=== PATIENT | female | born 1985 | race Caucasian/White ===

== ENCOUNTER 2018-06-16 08:20 | Inpatient (IN) | payer OTHER ==
[~2018-06-16] VITALS: Ht 157.5 cm; Wt 64.9 kg
[~2018-06-16 08:20] MED LIST: Benzocaine 60 ML TP; DOCU240C67 PO; IBUP600T22 PO; Lanolin TP; PREN1TAB50 PO; TUCKS TP
[2018-06-16] MEDS ORDERED: LIDOCAINE/PF 2% 200MG/10ML AMP 200 MG/10 ML AMPUL EPI PRN (08:45)
[2018-06-16] MEDS ORDERED: METOCLOPRAMIDE 10 MG/2 ML SDV IVP PRN (08:45)
[2018-06-16] MEDS ORDERED: fentaNYL CITR 100 MCG/2 ML AMP IT PRN (08:45)
[2018-06-16] MEDS ORDERED: LIDO/EPI 2% MPF 1:200,000 20ML EPI PRN (08:45)
[2018-06-16] MEDS ORDERED: BUPIVACAINE 0.25% MPF INJ EPI PRN (08:45)
[2018-06-16] MEDS ORDERED: LIDOCAINE 1% LOCAL 300 MG/30ML INJ PRN (08:45)
[2018-06-16] MEDS ORDERED: OXYTOCIN 30 UNIT/D5LR 500 ML 500 ML IV PRN (08:45)
[2018-06-16] MEDS ORDERED: FAMOTIDINE(*) 20MG/50ML PREMIX 50 ML IVPB PRN (08:45)
[2018-06-16] MEDS ORDERED: cefOXitin/DEX(*) 2GM/50ML PREM 50 ML IVPB PRN (08:45)
[2018-06-16] MEDS ORDERED: LR(*) 1000 ML BAG 1,000 ML IV PRN (08:45)
[2018-06-16] MEDS ORDERED: DLR(*) 1000 ML BAG 1,000 ML IV PRN (08:45)
[2018-06-16] MEDS ORDERED: fentaNYL CITR 100 MCG/2 ML AMP IVP PRN (08:45)
[2018-06-16] MEDS ORDERED: FLUSH 10 ML SYR IVP PRN (08:45)
[2018-06-16] MEDS ORDERED: EPIDURAL KEYS XX PRN (08:45)
[2018-06-16] MEDS ORDERED: BUPIVACAINE 0.5% INJ 30ML VIAL EPI PRN (08:45)
[2018-06-16] MEDS ORDERED: FENTANYL/ROPIVACAINE 100 ML BAG EPI PRN (08:45)
--- NOTE | 2018-06-16 08:45 | History & Physical ---
History of Present Illness Age of Patient: 32 : 6 Para or TPAL: 4014 EDC per LMP: Jun 21, 2018 Estimated Gestational Age: 39.2 Chief Complaint CONTRACTIONS History of Present Illness The patient is a 32 year old 6 para 4014 admitted at 39 2/7 weeks estimated gestational age with an estimated date of delivery 06/21/18. Patient is admitted with complaint of contractions. No vaginal bleeding. Good movement and regular contractions. She was evaluated for active labor. She had an uncomplicated course. Her record was reviewed. History Allergies: Coded Allergies: No Known Drug Allergies (Unverified , 11/23/15) Social History: , is present and supportive. 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 No noxious habits. Med Rec Home Meds No Active Prescriptions or Reported Meds Exam General Exam Cardiovascular: Regular Rate and Rhythm Respiratory: Clear to Auscultation Abdomen: Gravid - Non-Tender Extremities: No Edema Cervical Dialation: 6 (RN) Uterine Contractions(Q min): 3 Uterine Contraction Strength: Strong Fetus Heart Tones: 140 Heart Tone Variabilty: Moderate FHT Decelerations: Variable FHT Category: II Assessment and Plan Problems: (1) Active labor at term Status: Resolved Assessment & Plan: WILL GET ADMITTED AN DDESIRES AN EPIDURAL, WILL MONITOR FOR CERVICAL CHANGE CAMERON PANTOJA MD Jun 16, 2018 08:45
[2018-06-16] MEDS ORDERED: LR(*) 1000 ML BAG 1,000 ML ONE (08:55)
[2018-06-16] MEDS ORDERED: OXYTOCIN 30 UNIT/D5LR 500 ML 500 ML ONE (09:11)
[2018-06-16 09:18] LABS: PLATELET COUNT, AUTOMATED 255 K/uL (150-450)
[2018-06-16 10:10] VITALS: BP 117/76; Ht 157.5 cm; Wt 64.9 kg
[2018-06-16] MEDS ORDERED: PREN-127 PO (10:18)
--- NOTE | 2018-06-16 10:21 | Anesthesia OB Pre-Anes Eval ---
History of Present Illness Anesthesia Start Date: Jun 16, 2018 Anesthesia Start Time: 08:45 OB Anesthesia Diagnosis: spontaneous labor Complications: None known EDC: Jun 21, 2018 : 6 Para: 4 Vital Signs: Vital Signs Date Time Temp Pulse Resp B/P (MAP) Pulse Ox O2 Delivery O2 Flow Rate FiO2 06/16/18 10:10 97.2 101 24 117/76 (90) 99 Room Air Pain Ratin Heart Tones: WNL Result Diagram: 06/16/18 0858 Height (Inches): 62.00 Weight (Pounds): 143 BMI Calculated: 26.15 Past Medical History Medical History: no pertinent history Surgical History: no surgical history Previous Anesthesia: epidural Attended Childbirth Classes?: No Hx Anesthesia Reactions: No Hx Family Anesthesia Reaction: No Home Meds No Active Prescriptions or Reported Meds Allergies: Coded Allergies: No Known Drug Allergies (Unverified , 11/23/15) Anesthesia OB ROS Neurological: No migraines/headaches, No seizures, No neuropathy ENT: Denies Tooth caps, Denies Loose teeth, Denies Chipped teeth, Denies Dentures, Denies Bridges, Denies Retainers, Denies Veneers, Denies Implants, Denies Tongue ring Pulmonary: No asthma, No smoker (pks/day/yrs), other Airway Class: ll Cardiovascular ROS: No edema, No arrhythmia, other GI ROS: clear liquids Last Solids Date: Jun 16, 2018 Last Solids Time: 07:00 ROS: No Herpes, No STD(s), No Liver Disease, No Renal Disease Endocrine ROS: No diabetes, No gestational diabetes, No thyroid disorder Musculoskeletal ROS: No low back pain, No low back injury, No scoliosis, other ASA Classification: 2 Assessment and Plan Anesthesia Plan: CSE Assessment Past Medical, Surgical, Family and Obstetric Histories reviewed. Please see ACOG chart. Pt. has had previous delivery with an epidural at [facility]. Pt. states no problems. Epidural anesthesia risks, complications and benefits explained to patient's satisfaction for labor and vaginal delivery and/or section. General anesthesia risks and benefits explained to patient's satisfaction. Questions invited, none asked. Pt. working hard to tolerate contractions. XENA GRAY REFRIGERATOR TESTER Jun 16, 2018 10:21
--- NOTE | 2018-06-16 10:25 | Procedure Note ---
Anesthetic Placement Note Anesthesia Plan: CSE Permit for Anesthesia Signed: Yes Anesthesia Technique: Patient Sitting Anesthesia Prep: Chlorhexidine Interspace: L 3-4 Local Anesthetic: 1% Lidocaine, 25 Gauge Needle Amount Local - cc's: 2 Anesthesia Needle: 17g Touhy/Schliff Anesthesia Attempts: 1 Loss of Resistance: Air Depth of RAMIRO (cm): 3 Epidural Needle Placement: No CSF, No Blood, No Parasthesia Intrathecal Needle: 27 Gauge Pencan Cerebral Spinal Fluid: Yes, Clear Catheter Insertion (cm): 7 Catheter Type: Merino - Spring Wound Epidural Dressing: Tegaderm, Tape, Adhesive [place]idan Anesthesia Tray: Lot Number ([id number]), Expiration Date (2019-07-14), Reference Number ([id number]) Anesthesia Medications: Intrathecal Dose: mcg Fentanyl (15), Time (900) Epidural Test Dose: 1.5 Lido/Epi (1:200,000), Dose - mL (2), Time (923), Negative Epidural Loading Dose: 0.2% Ropivicaine, With Fentanyl 2mcg/ml, Dose - ml (5), Time (924) Epidural Infusion: 0.2% Ropivicaine, With Fentanyl 2mcg/ml, Start Time: (924) Epidural Pump Setting: Bolus Dose - mL (5), Lockout - Minutes (20), Maintenance Rate - mL/hr (6), Maximum per Hour - mL (21) Complications: None Comment: Pt. tolerated procedure extremely well. Became comfortable within 5 minutes. Now feels only "tightening". XENA GRAY CRNA Jun 16, 2018 10:25
--- NOTE | 2018-06-16 10:34 | Labor Progress Note ---
Labor Subjective Progress Notes Subjective comfortable with epidural Labor Pain: Comfortable Labor Objective Vital Signs Vital Signs Date Time Temp Pulse Resp B/P (MAP) Pulse Ox O2 Delivery O2 Flow Rate FiO2 06/16/18 10:10 97.2 101 24 117/76 (90) 99 Room Air Cervical Dialation: 8 Cervical Effacement (%): 100 Cervical Consistency: Soft Cervical Position: Anterior Station: 0 Presentation: Vertex Uterine Contractions(Q min): 3 Uterine Contraction Strength: Strong Fetus Heart Tones: 130 Heart Tone Variabilty: Moderate FHT Decelerations: Variable FHT Category: II Other Result Diagram: 06/16/18 0858 Assessment and Plan Problems: (1) Active labor at term Status: Resolved Assessment & Plan: AROM CLEAR FLUID ANTICIPATE VAGINAL DELIVERY CAMERON PANTOJA MD Jun 16, 2018 10:34
--- NOTE | 2018-06-16 12:45 | Anesthesia Progress Note ---
Progress/Maintenance Anesthesia Note Date: Jun 16, 2018 Anesthesia Note Time: 12:40 Pain Intensity: 4 Pump: On Pump Rate (ML/HR): 6 Sensory Level: T-12 Motor Level: Bending Knees-Bilateral Dilatation: 10 Drug Bolus: 0.5% Marcaine (3 ml) Assessment and Plan Assessment Pt. redose when starting to push. Given Fentenyl 85 mcgs and Marcaine 0.5% Marcaine plain. Sever attempts made at pushing and decision made to have pt. "labor down". Now pt. is feeling more pressure with contractions. 3 ml of Marcaine 0.5% plain given. Tilted to rt side as pt. states she feels contractions stronger on rt. XENA GRAY CRNA Jun 16, 2018 12:45
[2018-06-16] MEDS ORDERED: HYDROCORTISONE 2.5% CR 30GM TB PR PRN (13:35)
[2018-06-16] MEDS ORDERED: LANOLIN OINT 7 GM TUBE TP PRN (13:35)
[2018-06-16] MEDS ORDERED: INFLUENZA VIRUS VAC 0.5 ML SYR IM ONLY ONE (13:35)
[2018-06-16] MEDS ORDERED: BENZOCAINE 20% 60 ML BTL TP PRN (13:35)
[2018-06-16] MEDS ORDERED: GLYCERIN/WITCH HAZEL LEAF 1 PK TP PRN (13:35)
[2018-06-16] MEDS ORDERED: HYDROmorphone HCL 2 MG TAB PO PRN (13:35)
[2018-06-16] MEDS ORDERED: MAGNESIUM HYDROXIDE* 30ML UDCP PO PRN (13:35)
--- NOTE | 2018-06-16 13:35 | OB Delivery Note ---
Delivery Note Vaginal Delivery Type: Spont. Vaginal Delivery Delivery Date: Jun 16, 2018 Delivery Time: 13:10 Estimated Gestational Age(wks): 38.2 Delivery Anesthesia: Epidural Infant Sex: Female Infant Weight (gms): 3062 [place] Apgars: 1 Minute (8), 5 Minute (8) Repair Needed: Laceration, Vaginal, Perineal, 2nd Degree Estimated Blood Loss: 400 Delivery Complications: Nuchal Cord Notes: SPONTANEOUS LABOR, AROM CLEAR FLUID AFTER RECEIVING EPIDURAL. PROGRESSED TO COMPLETE LABORED DOWN THEN PUSHED EFFECTIVELY DELIVERING OVER MIDLINE LACERATION. SPONTANEOUS CRY AND MOVEMENT ALL FOUR EXTREMITIES. CORD CLAMPED X 2 AND CUT. LACERATION REPAIRED WITH 3-0 VICRYL NO COMPLICATIONS Strawhat Blocking Operator in Attendence: No Copies to: CAMERON PANTOJA MD, JOHN MD Jun 16, 2018 13:35
[2018-06-16] MEDS ORDERED: HYDR2TAB4 PO (13:46)
[2018-06-16] MEDS ORDERED: IBUP800T37 PO (13:46)
--- NOTE | 2018-06-16 13:55 | OB/GYN Discharge Summary ---
Discharge Summary Reason for Hosp/Final Diag: (1) Active labor at term Status: Resolved (2) care following vaginal delivery Hospital Course & Plan: Vag delivery on day 1, Pain controlled, Tolerating diet and activity. Baby . Normal lochia. Lates Vital Signs Vital Signs Date Time Temp Pulse Resp B/P (MAP) Pulse Ox O2 Delivery O2 Flow Rate FiO2 06/16/18 10:10 97.2 101 24 117/76 (90) 99 Room Air Weight (Pounds): 143 Result Diagram: 06/16/18 0858 Condition: Improved Discharge: Home, Self [facility] Meds Active Scripts Ibuprofen (IBUPROFEN) 800 Mg Tablet, 1 TAB PO Q8H, #30 TAB 0 Refills Take with food every 8 hours. Prov:CAMERON PANTOJA MD 06/16/18 Hydromorphone Hcl (HYDROMORPHONE HCL) 2 Mg Tablet, 2 MG PO Q4H for PAIN, #20 TAB 0 Refills Prov:CAMERON PANTOJA MD 06/16/18 Reported Medications Vits W-Ca,Fe,Fa(<1MG) ( VITAMINS) 1 Each Tablet, 1 EACH PO DAILY, TAB 06/16/18 [facility] [phone] Discharge Diet: As Tolerates Discharge Activity: Pelvic Rest Copies to: CAMERON PANTOJA MD, JOHN MD Jun 16, 2018 13:54
--- NOTE | 2018-06-16 13:56 | Anesthesia Progress Note ---
Progress/Maintenance Anesthesia Note Date: Jun 16, 2018 Anesthesia Note Time: 13:50 Pain Intensity: 0 Pump: Off Sensory Level: T-12 Motor Level: Bending Knees-Bilateral Dilatation: 10 Position: Semi-Fowlers Assessment and Plan Assessment No further medications given. Pt. was able to push well and had excellent tolerance of delivery and repair work. Empty syringe attached to epidural catheter and RN agrees to remove with ambulation. Patient instructed the first ambulation is to be with help of nursing staff. Instructed to preform deep knee bends at bedside before walking. Anesthesia Stop Day: Jun 16, 2018 Anesthesia Stop Time: 13:20 XENA GRAY CRNA Jun 16, 2018 13:56
[2018-06-16] MEDS: IBUPROFEN 800 MG TAB PO SCH ×2 (16:28→23:53)
[2018-06-16 19:30] VITALS: BP 134/70
[2018-06-16] MEDS: ACETAMINOPHEN 325 MG TAB PO PRN (21:37)
[2018-06-16] MEDS: DOCUSATE CALCIUM 240 MG CAP PO SCH (21:37)
[2018-06-16 23:30] VITALS: BP 107/57
[2018-06-17] MEDS: ACETAMINOPHEN 325 MG TAB PO PRN (03:41)
[2018-06-17 04:00] VITALS: BP 119/60
--- NOTE | 2018-06-17 07:09 | OB/GYN Progress Note ---
OB Subjective Progress Notes Subjective Pain controlled, Tolerating diet and activity. Baby . Normal lochia. GI: POS Flatus, NEG Nausea, NEG Vomiting : Voiding Well Pain: Mild OB Objective Physical Exam Vital Signs Date Time Temp Pulse Resp B/P (MAP) Pulse Ox O2 Delivery O2 Flow Rate FiO2 06/17/18 04:00 98.3 82 16 119/60 (79) 95 Room Air Cardiovascular: Regular Rate and Rhythm Respiratory: Clear to Auscultation Abdomen: Soft, Non-Tender, Non-Distended, Bowel Sounds Present, Fundus Firm Extremities: No Edema Result Diagram: 06/17/18 0610 Assessment and Plan Post Day: 1 RN CHEMICAL DEPENDENCY Assessment: Stable RN CHEMICAL DEPENDENCY Plan: Discharge Home Today Problems: (1) Active labor at term Status: Resolved (2) care following vaginal delivery Assessment & Plan: Pain controlled, Tolerating diet and activity. Baby . Normal lochia. CAMERON PANTOJA MD Jun 17, 2018 07:09
[2018-06-17] MEDS ORDERED: MULTIVITAMINS (PRENATAL) TAB PO SCH (09:00)
[2018-06-17] MEDS: IBUPROFEN 800 MG TAB PO SCH (10:14)
[2018-06-17] MEDS: DOCUSATE CALCIUM 240 MG CAP PO SCH (10:14)
[2018-06-17 10:30] VITALS: BP 123/62
--- NOTE | 2018-06-17 14:19 | Anesthesia Post Eval Note ---
Anesthesia Post Eval Note Stabil, afebrile. Pt able to participate in Eval: Yes Cardiovascular Status: Satisfactory Respiratory Status: Satisfactory Pain Managment: Satisfactory PO Nausea/Vomiting: Satisfactory Temperature Management: Satisfactory Mental Status: Satisfactory, Alert, Oriented X3 Post-Op Hydration Status: Satisfactory, Tolerating PO Well, Voiding w/o Difficulty Anesthesia Type: CSE Anesthesia Tolerance: Ambulatory without symptoms of PDPH, no apparent complications. HEDY MUNOZ BRICK POINTER Jun 17, 2018 14:19
[2018-06-18] MEDS ORDERED: MEASLES,MUMP,RUBELLA VAC 0.5ML SUBQ ONE (09:00)
[2018-06-18] MEDS ORDERED: DIPHTH/TETANUS/ACEL. PERTUSSIS IM ONLY ONE (09:00)
== END 2018-06-17 15:41 | disposition home or self-care (01) | DRG 775 ==
LOC: OB 08:20
PROVIDERS: ADMIT Obstetrics & Gynecology; ATTEND Obstetrics & Gynecology
PROC: 10E0XZZ Delivery of Products of Conception, External Approach (ICD-10-PCS; principal; 2018-06-16)
PROC: 0KQM0ZZ Repair Perineum Muscle, Open Approach (ICD-10-PCS; 2018-06-16)
PROC: 10907ZC Drainage of Amniotic Fluid, Therapeutic from Products of Conception, Via Natural or Artificial Opening (ICD-10-PCS; 2018-06-16)
DX: O69.81X0 Labor and delivery complicated by cord around neck, without compression, not applicable or unspecified (principal); O70.1 Second degree perineal laceration during delivery; Z37.0 Single live birth; Z3A.39 39 weeks gestation of pregnancy
CPT/HCPCS: 36415; 85025; 85027; 86850; 86900; 86901; J3010; J7120; S0020